=== PATIENT | male | born 1965 | race Caucasian/White ===

== ENCOUNTER 2020-07-17 01:01 | Emergency (ER) | payer OTHER ==
[2020-07-17] MEDS ORDERED: diphenhydrAMINE 25 MG CAP ONE (01:25)
[2020-07-17] MEDS ORDERED: Famotidine 20 MG TAB ONE (01:25)
[2020-07-17] MEDS ORDERED: predniSONE 20 MG TAB ONE (01:25)
[2020-07-17] MEDS ORDERED: Ondansetron ODT 4 MG TAB ONE (01:27)
== END 2020-07-17 01:56 | disposition home or self-care (01) ==
LOC: MADERS 01:01
DX: L50.0 Allergic urticaria (principal); F17.200 Nicotine dependence, unspecified, uncomplicated
CPT/HCPCS: 99282; J7512; Q0162